=== PATIENT | male | born 1945 | race Caucasian/White ===

== ENCOUNTER 2024-07-11 17:30 | Inpatient (IN) | payer MEDICARE, OTHER ==
[~2024-07-11] VITALS: Ht 172.7 cm; Wt 77.1 kg
[2024-07-11] MEDS ORDERED: HYDR-501 PO (17:54)
[2024-07-11] MEDS ORDERED: QUET50TA PO (17:54)
[2024-07-11] MEDS ORDERED: MEMA10TA PO (17:54)
[2024-07-11] MEDS ORDERED: PANT40TA49 PO (17:54)
[2024-07-11] MEDS ORDERED: DOCU100T2 PO (17:54)
[2024-07-11] MEDS ORDERED: ACET325T53 PO (17:54)
[2024-07-11] MEDS ORDERED: BISA10SU61 RC (17:54)
[2024-07-11] MEDS ORDERED: DONE10TA44 PO (17:54)
[2024-07-11] MEDS ORDERED: DICL2.5D EACHEYE (17:54)
[2024-07-11] MEDS ORDERED: MULT-225 PO (17:54)
[2024-07-11] MEDS ORDERED: CHOL100034 PO (17:54)
[2024-07-11] MEDS ORDERED: MAGN400O6 PO (17:54)
[2024-07-11] MEDS ORDERED: ALBU2.5V38 IH (17:54)
[2024-07-11] MEDS ORDERED: DIVA250T4 PO (17:54)
[2024-07-11 18:22] LABS: BASOPHILS % (AUTO) 0.5 % (0.0-2.0); EOSINOPHILS # (AUTO) 0.2 K/uL (0.0-0.7); EOSINOPHILS % (AUTO) 2.3 % (0.0-7.0); HEMATOCRIT 40.8 % (36.7-47.1); HEMOGLOBIN 13.9 g/dL (12.5-16.3); LYMPHOCYTES # (AUTO) 2.5 K/uL (0.8-4.8); MEAN CORPUSCULAR HEMOGLOBIN 30.7 uug (23.8-33.4); MEAN CORPUSCULAR HGB CONC 34 g/dL (32.5-36.3); MEAN CORPUSCULAR VOLUME 90.4 fL (73.0-96.2); MONOCYTES # (AUTO) 0.6 K/uL (0.1-1.30); MONOCYTES % (AUTO) 6.9 % (0.0-11.0); NEUTROPHILS # (AUTO) 5.9 K/uL (1.8-8.9); NEUTROPHILS % (AUTO) 63.3 % (38.5-71.5); PLATELET COUNT (AUTO) 175 K/uL (152-348); RED BLOOD CELL COUNT(AUTO) 4.52 MIL/uL (4.06-5.63); WHITE BLOOD COUNT (AUTO) 9.3 K/uL (3.6-10.2)
[2024-07-11 18:26] LABS: DIFFERENTIAL COMMENT 1
[2024-07-11 18:36] LABS: CALCIUM 8.9 mg/dL (8.5-10.1); CARBON DIOXIDE 28 mmol/L (21-32); CHLORIDE 105 mmol/L (98-107); GLUCOSE 109 mg/dL (74-106); POTASSIUM 4.1 mmol/L (3.5-5.1); SODIUM SERUM 143 mmol/L (136-145); UREA NITROGEN, BLOOD 10 mg/dL (7-18)
[2024-07-11 18:37] LABS: ETHANOL < 3 MG/DL (0-10)
[2024-07-11 18:41] LABS: ALANINE AMINOTRANSFERASE 10 U/L (16-63); ALBUMIN 3.2 g/dL (3.4-5.0); ALKALINE PHOSPHATASE 89 U/L (50-136); ASPARTATE AMINOTRANSFERASE 7 U/L (15-37); BILIRUBIN,DIRECT 0.1 mg/dL (0.0-0.2); BILIRUBIN,TOTAL 0.4 mg/dL (0.2-1.0); TOTAL PROTEIN, SERUM 8.1 g/dL (6.4-8.2)
[2024-07-11 18:44] LABS: THYROID STIMULATING HORMONE 4.779 mIU/mL (0.358-3.740)
[2024-07-11 19:13] LABS: ACETAMINOPHEN < 2.0 ug/mL (10-30)
[2024-07-11 19:14] LABS: AMMONIA 18 umol/L (11-32)
[2024-07-11] MEDS ORDERED: LORAZEPAM 2 MG/1 ML VIAL ONE ×2 (19:16→21:12)
[2024-07-11] MEDS ORDERED: diphenhydrAMINE 50 MG/1 ML VIAL ONE (19:16)
[2024-07-11 19:24] LABS: NT-PRO BNP 257 pg/mL (0-125)
[2024-07-11] MEDS: LORAZEPAM 2 MG/1 ML VIAL IM ONE ×2 (19:24→21:20)
[2024-07-11] MEDS: diphenhydrAMINE 50 MG/1 ML VIAL IM ONE (19:24)
[2024-07-11 20:54] LABS: *BILIRUBIN,URIN NEGATIVE (NEGATIVE); *BLOOD, URINE 1+ (NEGATIVE); *CLARITY,URINE CLEAR (CLEAR); *COLOR,URINE YELLOW (YELLOW); *KETONES,URINE TRACE (NEGATIVE); *PROTEIN,URINE NEGATIVE (NEGATIVE); *UROBILINOGEN,URINE 0.2 E.U./dl (NORMAL); LEUKOCYTE ESTERASE ,URINE NEGATIVE (NEGATIVE); NITRITE, URINE NEGATIVE (NEGATIVE); PH,URINE 5.5 (5.0-8.0); UGLUCOSE NEGATIVE (NEGATIVE)
[2024-07-11 21:04] LABS: *AMPHETAMINE, URINE NEGATIVE (NEGATIVE); *BARBITURATE, URINE NEGATIVE (NEGATIVE); *BENZODIAZEPINE, URINE NEGATIVE (NEGATIVE); *CANNABINOID, URINE NEGATIVE (NEGATIVE); *COCCAINE, URINE NEGATIVE (NEGATIVE); *OPIATE, URINE NEGATIVE (NEGATIVE); *PHENCYCLIDINE SCREEN,URINE NEGATIVE (NEGATIVE); FENTANYL, URINE NEGATIVE (NEGATIVE)
[2024-07-11] MEDS ORDERED: LORAZEPAM 1 MG TABLET ONE (21:10)
[2024-07-11 21:28] LABS: BACTERIA,URINE FEW /HPF (NONE SEEN); RBC,URINE 0-3 /HPF (0-3); SQUAMOUS EPITHELIAL CELL,UR FEW /HPF (NONE SEEN); WBC,URINE 0-3 /HPF (0-3)
[2024-07-11] MEDS ORDERED: MAGNESIUM HYDROXIDE 30 ML LIQUID UDC PO PRN (23:45)
[2024-07-11] MEDS ORDERED: MAG HYDROX/AL HYDROX/SIMETH 30 ML LIQUID UDC PO PRN (23:45)
[2024-07-11] MEDS: BLOOD SUGAR DIAGNOSTIC 1 EACH STRIP VI ONE (23:56)
[2024-07-12] MEDS: ZOLPIDEM 5 MG TABLET PO PRN ×2 (00:01→23:28)
[2024-07-12 00:11] VITALS: BP 141/75; TEMP 97.1; O2SAT 98
[2024-07-12 07:30] VITALS: BP 143/75; TEMP 98.2; O2SAT 96
[2024-07-12] MEDS: LORAZEPAM 1 MG TABLET PO PRN (12:12)
[2024-07-12] MEDS ORDERED: Medication Not On Formulary EA (Docusate Sodium 100 MG) PO SCH (16:15)
[2024-07-12] MEDS ORDERED: BISACODYL 10 MG SUPP.RECT RC PRN (16:15)
[2024-07-12] MEDS ORDERED: ALBUTEROL SULFATE 2.5 MG/3 ML NEBU IH PRN (16:15)
[2024-07-12] MEDS ORDERED: Medication Not On Formulary EA (Cholecalciferol (Vitamin D3) (Vitamin D3) 1 TAB) PO SCH (16:15)
[2024-07-12] MEDS ORDERED: Medication Not On Formulary EA (Multivitamins (Multiple Vitamin) 1 TAB) PO SCH (16:15)
[2024-07-12 16:49] VITALS: BP 128/76; TEMP 97.7; O2SAT 98
[2024-07-12] MEDS: hydrOXYzine HCL 25 MG TABLET PO SCH (18:19)
[2024-07-12] MEDS: FLUTICASONE/VILANTEROL 1 EACH BLST.W.DEV INH SCH (18:20)
[2024-07-12 19:53] VITALS: BP 136/72; TEMP 98.1; O2SAT 96
[2024-07-12] MEDS: QUETIAPINE FUMARATE 25 MG TABLET PO SCH (20:47)
[2024-07-12] MEDS: DIVALPROEX 125 MG TABLET.DR PO SCH (20:48)
[2024-07-13] MEDS: PANTOPRAZOLE SODIUM 40 MG TABLET.DR PO SCH (06:33)
[2024-07-13 08:02] VITALS: BP 124/68; TEMP 98.6; O2SAT 96
[2024-07-13] MEDS: DOCUSATE SODIUM 100 MG CAPSULE PO SCH (08:20)
[2024-07-13] MEDS: MULTIVITAMINS,THERAPEUTIC TABLET PO SCH (08:20)
[2024-07-13] MEDS: NICOTINE 14 MG/24HR PATCH TD SCH (08:20)
[2024-07-13] MEDS: CHOLECALCIFEROL 1,000 UNIT TABLET PO SCH (08:20)
[2024-07-13] MEDS: LORAZEPAM 1 MG TABLET PO PRN (13:15)
[2024-07-13 16:30] VITALS: BP 128/69; TEMP 98.1; O2SAT 97
[2024-07-13 20:03] VITALS: BP 114/58; TEMP 98; O2SAT 96
[2024-07-13] MEDS: QUETIAPINE FUMARATE 25 MG TABLET PO SCH (20:19)
[2024-07-14 08:16] VITALS: BP 136/72; TEMP 100.8; O2SAT 98
[2024-07-14] MEDS: ACETAMINOPHEN 325 MG TABLET PO PRN (08:23)
[2024-07-14 08:53] LABS: BASOPHILS % (AUTO) 0.2 % (0.0-2.0); EOSINOPHILS # (AUTO) 0.1 K/uL (0.0-0.7); EOSINOPHILS % (AUTO) 0.4 % (0.0-7.0); HEMATOCRIT 35.4 % (36.7-47.1); HEMOGLOBIN 12.4 g/dL (12.5-16.3); LYMPHOCYTES # (AUTO) 0.9 K/uL (0.8-4.8); LYMPHOCYTES % (AUTO) 7.2 % (20.5-51.5); MEAN CORPUSCULAR HEMOGLOBIN 31.5 uug (23.8-33.4); MEAN CORPUSCULAR HGB CONC 35 g/dL (32.5-36.3); MEAN CORPUSCULAR VOLUME 89.8 fL (73.0-96.2); MONOCYTES % (AUTO) 7.7 % (0.0-11.0); NEUTROPHILS # (AUTO) 10.6 K/uL (1.8-8.9); NEUTROPHILS % (AUTO) 84.5 % (38.5-71.5); PLATELET COUNT (AUTO) 146 K/uL (152-348); RED BLOOD CELL COUNT(AUTO) 3.94 MIL/uL (4.06-5.63); RED CELL DISTRIBUTION WIDTH 14.1 % (12.1-16.2); WHITE BLOOD COUNT (AUTO) 12.5 K/uL (3.6-10.2)
[2024-07-14 08:55] LABS: DIFFERENTIAL COMMENT 1
[2024-07-14] MEDS ORDERED: DIVALPROEX 125 MG TABLET.DR PO SCH (09:00)
[2024-07-14] MEDS: GUAIFENESIN LA 600 MG TABLET.SA PO SCH (12:10)
[2024-07-14] MEDS: AMOXICILLIN-CLAVUL 875-125MG TABLET PO SCH (12:10)
[2024-07-14] MEDS: DIVALPROEX 250 MG TABLET.DR PO SCH (14:00)
[2024-07-14 16:16] VITALS: BP 151/77; TEMP 98.3; O2SAT 99
[2024-07-14 20:22] VITALS: BP 146/72; TEMP 97.8; O2SAT 98
[2024-07-15 07:54] VITALS: BP 135/49; TEMP 98.2; O2SAT 98
[2024-07-15 15:06] VITALS: BP 111/57; TEMP 98.2; O2SAT 98
[2024-07-16 07:38] LABS: BASOPHILS % (AUTO) 0.5 % (0.0-2.0); EOSINOPHILS # (AUTO) 0.6 K/uL (0.0-0.7); EOSINOPHILS % (AUTO) 5.8 % (0.0-7.0); HEMATOCRIT 37.9 % (36.7-47.1); HEMOGLOBIN 12.9 g/dL (12.5-16.3); LYMPHOCYTES # (AUTO) 1.8 K/uL (0.8-4.8); LYMPHOCYTES % (AUTO) 17.5 % (20.5-51.5); MEAN CORPUSCULAR HEMOGLOBIN 30.8 uug (23.8-33.4); MEAN CORPUSCULAR HGB CONC 34 g/dL (32.5-36.3); MEAN CORPUSCULAR VOLUME 90.9 fL (73.0-96.2); MONOCYTES # (AUTO) 0.7 K/uL (0.1-1.30); MONOCYTES % (AUTO) 7.3 % (0.0-11.0); NEUTROPHILS # (AUTO) 6.9 K/uL (1.8-8.9); NEUTROPHILS % (AUTO) 68.9 % (38.5-71.5); PLATELET COUNT (AUTO) 156 K/uL (152-348); RED BLOOD CELL COUNT(AUTO) 4.17 MIL/uL (4.06-5.63); RED CELL DISTRIBUTION WIDTH 13.5 % (12.1-16.2)
[2024-07-16 07:43] LABS: DIFFERENTIAL COMMENT 1
[2024-07-16 07:58] VITALS: BP 129/69; TEMP 98.2; O2SAT 98
[2024-07-16 15:17] VITALS: BP 127/55; TEMP 98; O2SAT 98
[2024-07-16] MEDS ORDERED: TRIAMCINOLONE ACET 0.025% LOT 60 ML BOTTLE TOP SCH (17:00)
[2024-07-16] MEDS: TRIAMCINOLONE ACET 0.025% CREA 15 GM TUBE TP SCH (17:58)
[2024-07-16 19:54] VITALS: BP 123/51; TEMP 98; O2SAT 98
[2024-07-17 08:18] VITALS: BP 108/48; TEMP 98.3; O2SAT 98
[2024-07-17 16:20] VITALS: BP 106/57; TEMP 98; O2SAT 98
[2024-07-17 21:32] VITALS: BP 131/71; TEMP 98; O2SAT 98
[2024-07-18 08:33] VITALS: BP 109/65; TEMP 98; O2SAT 98
[2024-07-18 16:21] VITALS: BP 117/61; TEMP 98; O2SAT 98
[2024-07-18 20:00] VITALS: BP 117/94; TEMP 98.2; O2SAT 92
[2024-07-18] MEDS: QUETIAPINE FUMARATE 25 MG TABLET PO SCH (20:08)
[2024-07-19 08:27] VITALS: BP 132/63; TEMP 98.4; O2SAT 98
[2024-07-19 15:26] VITALS: BP 130/61; TEMP 98; O2SAT 98
[2024-07-19 20:15] VITALS: BP 127/68; TEMP 98.2; O2SAT 98
[2024-07-20 08:00] VITALS: BP 101/49; TEMP 97.6; O2SAT 98
[2024-07-20 16:00] VITALS: BP 121/51; TEMP 98.6; O2SAT 99
== END 2024-07-20 19:45 | DRG 885 ==
LOC: ER 17:36 → GPS 23:32
PROVIDERS: ADMIT Psychiatry & Neurology Psychiatry; ATTEND Nurse Practitioner Acute Care
DX: F29 Unspecified psychosis not due to a substance or known physiological condition (principal); F02.83 Dementia in other diseases classified elsewhere, unspecified severity, with mood disturbance; I50.32 Chronic diastolic (congestive) heart failure; F02.811 Dementia in other diseases classified elsewhere, unspecified severity, with agitation; J98.11 Atelectasis; J44.9 Chronic obstructive pulmonary disease, unspecified; F25.0 Schizoaffective disorder, bipolar type; G30.9 Alzheimer's disease, unspecified; F17.210 Nicotine dependence, cigarettes, uncomplicated; E78.5 Hyperlipidemia, unspecified
CPT/HCPCS: 36415; 70450; 71045; 80164; 84443; 84484; 85025; G0480; J1200; J2060; J3490